=== PATIENT | male | born 1945 | race Caucasian/White ===

== ENCOUNTER 2016-12-31 18:16 | Emergency (ER) | payer MEDICARE, OTHER ==
[2016-12-31] MEDS ORDERED: KETOROLAC TROMETHAMINE INJ 60 MG/2 ML VIAL IM ONE (18:51)
[2016-12-31] MEDS ORDERED: ACETAMINOPHEN W/COD #3 TAB 1 EA TAB PO ONE (18:51)
--- NOTE | 2016-12-31 19:00 | ED.PDOC ---
History of Present Illness - General Chief Complaint: Lower Extremity Injury Stated Complaint: FOOT PAIN Time Seen by Provider: 12/31/16 18:46 Source: patient, RN notes reviewed, Vital Signs reviewed Exam Limitations: no limitations - History of Present Illness Initial Comments: Patient comes in with c/o of sharp shooting pains in his right great toe that started @ ~14:00 today. He has chronic plantar faciitis and neuropathy but this is a new and different pain. Not improving with OTC Ibuprofen and Voltaren gel. Occurred: this afternoon Pain - Lower Extremity: moderate: Right Foot Method of Injury: unknown Improving Factors: nothing Worsening Factors: nothing Allergies/Adverse Reactions: Allergies Penicillins Allergy (Verified 03/13/15 02:29) Rash Home Medications: Ambulatory Orders Amlodipine Besylate [Norvasc] 10 mg PO DAILY 12/31/14 Gabapentin 300 mg PO DAILY 12/31/14 Gabapentin 600 mg PO BEDTIME 12/31/14 Lisinopril 10 mg PO BID 12/31/14 Nebivolol HCl [Bystolic] 10 mg PO DAILY 12/31/14 Acetaminophen W/ Codeine [Tylenol w/Codeine 300-30 mg] 1 tab PO Q4HR PRN #30 tab 12/21/15 Acetamin W/Cod #3 Tab [Tylenol w/CODEINE #3] 1 ea PO Q4HR PRN #15 tab 12/31/16 Review of Systems - Review of Systems Constitutional: States: no symptoms reported Respiratory: States: no symptoms reported Cardiology: States: no symptoms reported Musculoskeletal: States: see HPI, joint pain - Right 1st great toe Skin: States: no symptoms reported Neurological: States: numbness, tingling All other Systems: No Change from Baseline Past Medical History (General) - Patient Medical History Hx Stroke: No Hx Congestive Heart Failure: No Hx Hypertension: Yes Hx Diabetes: No - Vaccination History Hx Tetanus, Diphtheria Vaccination: No Hx Influenza Vaccination: Yes - 2014 Hx Pneumococcal Vaccination: Yes - 2015 - Social History Hx Tobacco Use: No Hx Chewing Tobacco Use: No Hx Alcohol Use: No Hx Substance Use: No Hx Substance Use Treatment: No Hx Depression: No Hx Physical Abuse: No Hx Emotional Abuse: No Hx Suspected Abuse: No - Female History Patient : No Family Medical History - Family History Father Living Status: Cause of : old age Hx Family Cancer: Yes - testicular CA Physical Exam - Physical Exam General Appearance: Alert, Comfortable, No apparent distress, Well Developed, Well Groomed, Well Hydrated, Well Nourished Cardiovascular/Respiratory: normal peripheral pulses Ankle: normal inspection, non-tender, no evidence of injury, normal ROM Foot: soft tissue tenderness, other - R great toe: tenderness @ flextor tendon, worse with palpation and resistance to toe flextion Neuro/Tendon: normal sensation, normal motor functions, normal tendon functions , responds to pain, no evidence tendon injury Mental Status: alert, oriented x 3 Skin: normal color, warm/dry Progress - Progress Progress: 12/31/16 19:36 Patient reports he is starting to feel better Departure - Departure Clinical Impression: Tendinitis of toe, Paresthesia of right foot Time of Disposition: 19:37 Disposition: Discharge to Home or Self Care Condition: Good Departure Forms: ED Discharge - Pt. Copy, Patient Portal Self Enrollment Instructions: Tenosynovitis Diet: resume usual diet Activity: increase activity as tolerated Referrals: Enrrique Azul MD [Primary Care Provider] - 1-2 Weeks Prescriptions: Acetamin W/Cod #3 Tab [Tylenol w/CODEINE #3] 1 ea PO Q4HR PRN #15 tab PRN Reason: Moderate To Severe Pain Home Medications: Ambulatory Orders Amlodipine Besylate [Norvasc] 10 mg PO DAILY 12/31/14 Gabapentin 300 mg PO DAILY 12/31/14 Gabapentin 600 mg PO BEDTIME 12/31/14 Lisinopril 10 mg PO BID 12/31/14 Nebivolol HCl [Bystolic] 10 mg PO DAILY 12/31/14 Acetaminophen W/ Codeine [Tylenol w/Codeine 300-30 mg] 1 tab PO Q4HR PRN #30 tab 12/21/15 Acetamin W/Cod #3 Tab [Tylenol w/CODEINE #3] 1 ea PO Q4HR PRN #15 tab 12/31/16
[2016-12-31 19:38] VITALS: BP 156/89; TEMP 98.3; O2SAT 94
== END 2016-12-31 19:43 | disposition home or self-care (01) ==
LOC: ER 18:16
DX: M76.891 Other specified enthesopathies of right lower limb, excluding foot (principal); R20.9 Unspecified disturbances of skin sensation; I10 Essential (primary) hypertension; Z79.899 Other long term (current) drug therapy; Z88.0 Allergy status to penicillin

== ENCOUNTER → 2017-01-17 | Outpatient (CLI) | payer MEDICARE, OTHER | END | disposition home or self-care (01) | LOC: GMAB 10:09 | PROVIDERS: ATTEND Family Medicine | DX: E83.119 Hemochromatosis, unspecified (principal); Z12.5 Encounter for screening for malignant neoplasm of prostate; I10 Essential (primary) hypertension; G60.3 Idiopathic progressive neuropathy | CPT/HCPCS: 82607; 82728; 82746; 84443; G0103 ==

== ENCOUNTER → 2017-01-21 | Outpatient (CLI) | payer MEDICARE, OTHER | END | disposition home or self-care (01) | LOC: LAB.O 09:08 | PROVIDERS: ATTEND Family Medicine | DX: E83.19 Other disorders of iron metabolism (principal) ==

== ENCOUNTER → 2017-01-28 | Outpatient (CLI) | payer MEDICARE, OTHER | END | disposition home or self-care (01) | LOC: LAB.O 13:46 | PROVIDERS: ATTEND Family Medicine | DX: E83.119 Hemochromatosis, unspecified (principal) ==

== ENCOUNTER → 2017-02-04 | Outpatient (CLI) | payer MEDICARE, OTHER | END | disposition home or self-care (01) | LOC: GMAB 13:54 | PROVIDERS: ATTEND Family Medicine | DX: E83.119 Hemochromatosis, unspecified (principal) ==

== ENCOUNTER 2017-10-30 04:24 | Observation (INO) | payer MEDICARE, OTHER ==
--- NOTE | 2017-10-30 04:53 | ED.PDOC ---
History of Present Illness - General Chief Complaint: Cardiovascular Problem Stated Complaint: irregular heartrate Time Seen by Provider: 10/30/17 04:47 Source: patient Exam Limitations: no limitations Additional Information: C/O "A-FIB". PT WOKE UP WITH IRREGULAR HEART BEAT. HIS HAS A FIB SO THEY FIGURED THAT'S WHAT HE HAD. HE'S HAD SOME INTERMITTENT SX'S IN PAST BUT NO PREVIOUS DX OF A FIB. NO OTHER SX'S - History of Present Illness Timing/Duration: 1-3 hours Severity: moderate Activities at Onset: none Improving Factors: nothing Worsening Factors: nothing Associated Symptoms: denies symptoms Allergies/Adverse Reactions: Allergies Penicillins Allergy (Verified 03/13/15 02:29) Rash Home Medications: Ambulatory Orders Amlodipine Besylate [Norvasc] 10 mg PO DAILY 12/31/14 Gabapentin 300 mg PO DAILY 12/31/14 Gabapentin 600 mg PO BEDTIME 12/31/14 Lisinopril 10 mg PO BID 12/31/14 Nebivolol HCl [Bystolic] 10 mg PO DAILY 12/31/14 Review of Systems - Review of Systems Constitutional: Denies: chills, fever EENTM: States: no symptoms reported Respiratory: Denies: cough, short of breath Cardiology: States: palpitations. Denies: chest pain, syncope Gastrointestinal/Abdominal: Denies: abdominal pain, diarrhea, nausea, vomiting Genitourinary: States: no symptoms reported Musculoskeletal: States: no symptoms reported Skin: States: no symptoms reported Neurological: Denies: numbness, tingling, weakness Endocrine: Denies: excessive sweating, intolerance to cold, intolerance to heat Past Medical History (General) - Patient Medical History Hx Seizures: No Hx Stroke: No Hx Dementia: No Hx of COPD: No Hx Cardiac Disorders: No Hx Congestive Heart Failure: No Hx Pacemaker: No Hx Hypertension: Yes Hx Thyroid Disease: No Hx Diabetes: No Hx Gastroesophageal Reflux: Yes Surgical History: no surgical history - Vaccination History Hx Tetanus, Diphtheria Vaccination: No Hx Influenza Vaccination: Yes Hx Pneumococcal Vaccination: Yes - Social History Hx Tobacco Use: No Hx Chewing Tobacco Use: No Hx Alcohol Use: No Hx Substance Use: No Hx Substance Use Treatment: No Hx Depression: No Hx Physical Abuse: No Hx Emotional Abuse: No Hx Suspected Abuse: No - Female History Patient : No - Triage Comment ED Triage Comment: Had episode in past of "skipped heart beats", but denies any irregular rate as he is experiencing presently Family Medical History - Family History Father Living Status: Cause of : old age Hx Family Cancer: Yes - testicular CA Physical Exam - Physical Exam General Appearance: Alert, No apparent distress Eyes, Ears, Nose, Throat Exam: PERRL/EOMI, normal ENT inspection Neck: non-tender, full range of motion, supple Respiratory: lungs clear, normal breath sounds Cardiovascular/Chest: no murmur, irregularly irregular Gastrointestinal/Abdominal: normal bowel sounds, non tender, soft, no organomegaly Extremity: normal range of motion, non-tender Neurologic: alert, normal mood/affect Skin Exam: normal color, warm/dry Lymphatic: no adenopathy Progress - Progress Progress: 10/30/17 05:46 RATE STABLE, STILL A FIB. NO C/O'S - EKG/XRAY/CT EKG: Atrial, Fibrillation - RATE 94, LAD, , nonspecific ST T wave Chg - NAIP, , Changed from - 08/03/2013, INTERVAL ONSET OF ATRIAL FIBRILLATION XRAY: chest - KRISTIAN Departure - Departure Clinical Impression: Atrial fibrillation with normal ventricular rate Hypertension Qualifiers: Hypertension type: essential hypertension Qualified Code(s): I10 - Essential ( primary) hypertension Time of Disposition: 05:47 - D/W ALYSON WILL ADMIT Disposition: Admit Patient Condition: Good Departure Forms: ED Discharge - Pt. Copy, Patient Portal Self Enrollment Instructions: DI for Chest Pain Referrals: Enrrique Azul MD [Primary Care Provider] - 1-2 Weeks Home Medications: Ambulatory Orders Amlodipine Besylate [Norvasc] 10 mg PO DAILY 12/31/14 Gabapentin 300 mg PO DAILY 12/31/14 Gabapentin 600 mg PO BEDTIME 12/31/14 Lisinopril 10 mg PO BID 12/31/14 Nebivolol HCl [Bystolic] 10 mg PO DAILY 12/31/14
--- NOTE | 2017-10-30 05:21 | RAD ---
Chest single view on 10/30/2017 CLINICAL INDICATION: Atrial fibrillation COMPARISON: 03/12/2015 FINDINGS: The lungs are clear. Cardiac, hilar and mediastinal contours are within normal limits. Pulmonary vascularity is within normal limits. No bony abnormality is noted. IMPRESSION: No active disease. Electronically signed by: Art Manzanares 10/30/2017 5:20 AM CDT
[2017-10-30] MEDS ORDERED: MORPHINE SULFATE INJ 10 MG/ML VIAL IV PRN (08:37)
[2017-10-30] MEDS ORDERED: SODIUM CHLORIDE 0.9% (FLUSH) 10 ML SYG IV PRN (08:37)
[2017-10-30] MEDS ORDERED: NITROGLYCERIN 0.4 MG 25 EA TAB SL PRN (08:37)
[2017-10-30] MEDS ORDERED: ACETAMINOPHEN 325 MG TAB PO PRN (08:37)
[2017-10-30 08:58] VITALS: TEMP 98.3
[2017-10-30] MEDS ORDERED: SODIUM CHLORIDE 0.9% (FLUSH) 10 ML SYG IV SCH (09:00)
[2017-10-30] MEDS ORDERED: IV SET AND CAP CHANGE INJ INJ SCH (09:00)
[2017-10-30] MEDS ORDERED: APIXABAN 2.5 MG TAB PO SCH (11:30)
[2017-10-30] MEDS ORDERED: NEBIVOLOL 2.5 MG TAB PO SCH (13:15)
[2017-10-30] MEDS ORDERED: amLODIPine BESYLATE 5 MG TAB PO SCH (13:15)
[2017-10-30] MEDS ORDERED: GABAPENTIN 300 MG CAP PO SCH ×3 (13:30→21:00)
[2017-10-30] MEDS ORDERED: LISINOPRIL 10 MG TAB PO SCH (13:30)
[2017-10-30 15:36] VITALS: BP 140/92; O2SAT 98
--- NOTE | 2017-10-30 23:37 | SSS ---
SUPERVISING PHYSICIAN: Magdi Turner M.D. CHIEF COMPLAINT: Palpitations. HISTORY OF PRESENT ILLNESS: Mr. Mcfarlane is a 72 year-old male patient that presented to the Emergency Department early this morning with complaints of irregular heart beat. He has had apparently over the past month on and off some irregular heart beats but has never actually seen a physician and been diagnosed with atrial fibrillation. He had no complaints of chest pain, shortness of breath or any other concerning symptoms. His EKG on admission to the [facility] showed he was in a controlled ventricular rate but atrial fibrillation which is a new onset with a ventricular rate of 94. His initial laboratory studies on the troponin showed to be within normal limits with troponin less than 0.02. All other lab work was fairly unremarkable. Given that this is a new onset of atrial fibrillation, the [facility] physician, Dr. Lundberg , requested the patient be placed in Observation for further cardiac telemetry and serial cardiac enzymes to further rule out any complications and ensure the patient had a controlled ventricular rate, and to further assess and address the need for possible anticoagulation. The patient was placed in Observation in stable condition. PAST MEDICAL HISTORY: 1. Hypertension. 2. Hemochromatosis. PAST SURGICAL HISTORY: 1. Vasectomy. 2. Liver biopsy in 1992. CURRENT MEDICATIONS: ALLERGIES: FAMILY HISTORY: Unremarkable and noncontributory. SOCIAL HISTORY: The patient is retired and , lives in [place]. He has never smoked. Does not use any form of tobacco. He never drank and does not use illicit drugs. REVIEW OF SYSTEMS: CONSTITUTIONAL: Denied any fevers, chills, general malaise, unintentional weight loss. HEENT: No nasal congestion, headache, sore throat, ear aches. RESPIRATORY: No shortness of breath, cough, wheezing. CARDIOVASCULAR: As noted in History of Present Illness, palpitations but denies any chest pain, syncopal episodes. GASTROINTESTINAL: Denies any abdominal pains, diarrhea, nausea, vomiting or constipation. GENITOURINARY: Denies any dysuria, hematuria, polyuria or other urinary symptoms. MUSCULOSKELETAL: Denies any swelling or other general arthralgias or other complaints. NEUROLOGIC: Denies any numbness, tingling, weakness, seizures, ataxia or syncopal episodes. PHYSICAL EXAMINATION: VITAL SIGNS: In the Emergency Department on admission, temperature 96.8, pulse was initially 104 with blood pressure initially of 146/114 with respirations 18 , satting 100%. After repeat of vital signs, the patient was calmed down. Pulse was 87, blood pressure 128/78, respirations 16, satting 97% on room air. Heart rate was noted to be regular with a controlled ventricular rate and atrial fibrillation. Vital signs at discharge, temperature 98.3, pulse 73, blood pressure 140/92, respirations 16, satting 98% on room air. Admission weight was 81.6 kg. GENERAL: On admission to the Medical/Surgical floor, the patient was resting comfortably. Appeared to be in no acute distress. Well nourished, well hydrated, alert. HEENT: Tympanic membranes were clear bilaterally. Oropharynx was pink and moist without any lesions. NECK: Supple, non-tender with full range of motion. No jugular venous distention. CHEST: Lungs were clear to auscultation bilaterally without any rhonchi, wheezing or rales. CARDIOVASCULAR: Rate was irregular. Noted to be in sinus rhythm on monitor with no appreciable murmurs, gallops, or rubs. ABDOMEN: Soft, non-tender. Positive bowel sounds. EXTREMITIES: No clubbing, cyanosis or edema. NEUROLOGIC: He was alert and oriented times three. Cranial nerves II-XII are grossly intact. LABORATORY: CBC on admission showed white count 7,100, hemoglobin 17.6, hematocrit 50.2, platelet count 183,000. Differential showed to be without a left shift. Coagulation studies showed a PT of 13.5, INR 1.17, PTT 35.2. Chemistries showed just some mild low potassium at 3.4, otherwise all electrolytes were within normal limits. BUN 9, creatinine 0.9, calcium 9.4, magnesium 2.0, bilirubin was slightly elevated at 1.9. All other liver functions were all within normal limits. He had 3 sets of troponins that were all less than 0.02. TSH was normal at 1.40. EKG 12-lead initially in the Emergency Department showed an atrial fibrillation with a controlled ventricular rate in the 90s with no ST or T wave changes noted. Additional EKG initially on admission showed normal sinus rhythm with no ST or T wave changes and final EKG at discharge showed normal sinus rhythm with no acute changes. RADIOLOGY: Chest x-ray in the Emergency Department prior to admission per radiology interpretation showed the lung to be clear. No active disease. Pulmonary vasculature was within normal limits. ASSESSMENT: 1. New onset of atrial fibrillation with spontaneous conversion to normal sinus rhythm without any medical intervention with the patient showing a controlled ventricular rate initially on admission. 2. Palpitations secondary to #1, resolved. 3. Hypertension. 4. History of hemochromatosis. HOSPITAL COURSE: Mr. Eliud Mcfarlane was admitted from the E. R[facility] as noted above for new onset of atrial fibrillation. Initially he presented to the Emergency Department and on his EKG showed atrial fibrillation with a controlled ventricular rate in the 90s. He was having no chest pains. No other complaints , but had no history of previously having atrial fibrillation. Dr. Lundberg, E. [facility] physician, requested the patient be placed in Observation for further cardiac telemetry monitoring and initiation of anticoagulation as needed. On admission to the Medical/Surgical floor, the patient was found to be in normal sinus rhythm with no complaints. During his Observation period, he had no change in his rhythms, remained in normal sinus rhythm at discharge, again was showing normal sinus rhythm. No ST or T wave changes. Had no chest pains. No shortness of breath. The patient was initiated on Eliquis for anticoagulation and discussion was had between the patient and myself in regards to need to followup with cardiology after discharge. The patient was found to be stable and able to be discharged to have continuation and followup in the outpatient setting. PLAN: The patient was placed in Observation and then started on Eliquis after further discussion with Dr. Azul. Discussion as had that the patient will need to followup with cardiology and until that point since he was stable and showing no adverse effects, that he could start on anticoagulation with Eliquis until he was seen in the outpatient setting. Samples were provided for the patient until he could see cardiology in followup. The patient was found to be stable and was to be discharged to followup with Dr. Tijerina this week as well as to have a cardiology appointment secured as soon as possible. He was placed on a 48 hour Holter telemetry. His home medications were resumed as previous. Diet was regular diet as tolerated. Activity is increase as tolerated. Warnings were given in regards to signs and symptoms. Should he have any concerning symptoms, to return back to the E. R. or call 911, or call Dr. Tijerina's office. New prescriptions at discharge included Eliquis 5 mg b.i.d. with 2 months worth of samples provided and a prescription for 30 days sent to [facility]. Discharge condition was stable and improved. #[id number] [facility]
== END 2017-10-30 17:41 | disposition home or self-care (01) ==
LOC: ER 04:24 → MS 07:30
PROVIDERS: ADMIT Nurse Practitioner Family; ATTEND Nurse Practitioner Family
DX: I48.91 Unspecified atrial fibrillation (principal); R00.2 Palpitations; I10 Essential (primary) hypertension; E87.6 Hypokalemia; Z79.899 Other long term (current) drug therapy; Z88.0 Allergy status to penicillin

== ENCOUNTER → 2017-11-11 | Outpatient (CLI) | payer MEDICARE, OTHER | LOC: GMAE 16:40 | PROVIDERS: ATTEND Family Medicine | DX: R53.82 Chronic fatigue, unspecified (principal); E83.119 Hemochromatosis, unspecified ==

== ENCOUNTER → 2018-02-19 | Outpatient (CLI) | payer MEDICARE, OTHER | LOC: GMAE 10:39 | PROVIDERS: ATTEND Family Medicine | DX: E83.119 Hemochromatosis, unspecified (principal); I10 Essential (primary) hypertension ==

== ENCOUNTER → 2019-02-23 | Outpatient (CLI) | payer MEDICARE | LOC: GMAE 10:35 | PROVIDERS: ATTEND Family Medicine | DX: I10 Essential (primary) hypertension (principal); Z12.5 Encounter for screening for malignant neoplasm of prostate | CPT/HCPCS: 84443; G0103 ==

== ENCOUNTER → 2019-03-05 | Outpatient (CLI) | payer MEDICARE | LOC: GMAE 10:45 | PROVIDERS: ATTEND Family Medicine | DX: E83.119 Hemochromatosis, unspecified (principal) ==

== ENCOUNTER → 2020-04-14 | Outpatient (CLI) | payer MEDICARE, OTHER | LOC: GMAE 14:33 | PROVIDERS: ATTEND Family Medicine | DX: E83.119 Hemochromatosis, unspecified (principal); I10 Essential (primary) hypertension; Z12.5 Encounter for screening for malignant neoplasm of prostate; E78.5 Hyperlipidemia, unspecified | CPT/HCPCS: 82728; 84443; G0103 ==